=== PATIENT | female | born 2000 | race African-American/Black ===

== ENCOUNTER 2020-12-11 17:28 | Outpatient (CLI) | payer MEDICAID | END 2020-12-11 17:29 | disposition EMS.NT | LOC: EMS 17:28 | DX: R10.9 Unspecified abdominal pain (principal) ==

== ENCOUNTER 2020-12-11 18:15 | Emergency (ER) | payer MEDICAID ==
--- NOTE | 2020-12-11 18:35 | ED Physician Documentation ---
PD HPI ABD PAIN - Stated complaint Stated Complaint: LOWER ABD PX - Chief complaint Chief Complaint: Abd Pain - History obtained from History obtained from: Patient - History of Present Illness Timing - onset: How many hours ago (1) Timing - duration: Hours (1) Timing - details: Abrupt onset Quality: Aching, Sharp, Pain Location: LLQ Radiation: No: Lower back, Left flank Improved by: No: Eating Worsened by: No: Eating Associated symptoms: Nausea. No: Fever, Vomiting, Diarrhea, Constipation, Dysuria, Vaginal bleeding (finished typical period couple days ago. No current bleeding.), Vaginal dc Similar symptoms before: Has not had sx before Recently seen: Not recently seen Review of Systems Constitutional: denies: Fever, Chills Nose: denies: Rhinorrhea / runny nose, Congestion Throat: denies: Sore throat Respiratory: denies: Cough : denies: Dysuria, Frequency, Discharge, Irregular menses, Missed period Neurologic: denies: Focal weakness, Numbness, Near syncope PD PAST MEDICAL HISTORY - Past Medical History Cardiovascular: None Respiratory: None Neuro: None Endocrine/Autoimmune: None - Present Medications Home Medications: Ambulatory Orders Medication Instructions Recorded Confirmed No Known Home Medications 12/11/20 12/11/20 - Allergies Allergies/Adverse Reactions: Allergies Allergy/AdvReac Type Severity Reaction Status Date / Time No Known Drug Allergies Allergy Verified 12/11/20 18:32 PD ED PE NORMAL - Vitals Vital signs reviewed: Yes - General General: Alert and oriented X 3, Well developed/nourished - Neck Neck: Supple, no meningeal sign, No adenopathy - Cardiac Cardiac: RRR, No murmur - Respiratory Respiratory: Clear bilaterally - Abdomen Abdomen: Normal bowel sounds, Soft, Non distended, No organomegaly, Other (tender LLQ with some guarding and referred tender from mid abd. No percussion tenderness. ) - Derm Derm: Normal color, Warm and dry - Extremities Extremities: No calf tenderness / cord - Neuro Neuro: Alert and oriented X 3, No motor deficit, Normal speech Results - Vitals Vitals: Vital Signs - 24 hr 12/11/20 12/11/20 12/11/20 18:28 19:26 21:00 Temperature 36.9 C 36.6 C Heart Rate 65 68 53 L Respiratory 15 16 14 Rate Blood Pressure 112/69 112/81 H 112/83 H O2 Saturation 99 100 100 Oxygen O2 Source Room air - Labs Labs: Laboratory Tests 12/11/20 12/11/20 12/11/20 18:54 18:54 20:42 WBC 8.3 RBC 4.83 Hgb 13.1 Hct 40.4 MCV 83.6 MCH 27.1 MCHC 32.4 RDW 14.1 Plt Count 300 MPV 10.5 Neut # (Auto) 5.4 Lymph # (Auto) 2.3 [place] # (Auto) 0.6 Eos # (Auto) 0.0 Baso # (Auto) 0.0 Absolute Nucleated RBC 0.00 Nucleated RBC % 0.0 Sodium 139 Potassium 2.9 L Chloride 103 Carbon Dioxide 26 Anion Gap 10.0 BUN 9 Creatinine 0.7 Estimated GFR (MDRD) 129 Glucose 91 Calcium 9.7 Total Bilirubin 1.7 H AST 22 ALT 12 Alkaline Phosphatase 59 Total Protein 8.2 Albumin 5.0 Globulin 3.2 Albumin/Globulin Ratio 1.6 Lipase 23 Urine Color YELLOW Urine Clarity CLEAR Urine pH 6.[address] [place] 1.010 Urine Protein NEGATIVE Urine Glucose (UA) NEGATIVE Urine Ketones NEGATIVE Urine Occult Blood NEGATIVE Urine Nitrite NEGATIVE Urine Bilirubin NEGATIVE Urine Urobilinogen 0.2 (NORMAL) Ur Leukocyte Esterase NEGATIVE Ur Microscopic Review NOT INDICATED Urine Culture Comments NOT INDICATED Urine HCG, Qual 12/11/20 20:42 WBC RBC Hgb Hct MCV MCH MCHC RDW Plt Count MPV Neut # (Auto) Lymph # (Auto) [place] # (Auto) Eos # (Auto) Baso # (Auto) Absolute Nucleated RBC Nucleated RBC % Sodium Potassium Chloride Carbon Dioxide Anion Gap BUN Creatinine Estimated GFR (MDRD) Glucose Calcium Total Bilirubin AST ALT Alkaline Phosphatase Total Protein Albumin Globulin Albumin/Globulin Ratio Lipase Urine Color Urine Clarity Urine pH Ur Specific [place] Urine Protein Urine Glucose (UA) Urine Ketones Urine Occult Blood Urine Nitrite Urine Bilirubin Urine Urobilinogen Ur Leukocyte Esterase Ur Microscopic Review Urine Culture Comments Urine HCG, Qual NEGATIVE - Rads (name of study) pelvic U/S Radiology: Prelim report reviewed (no acute process. no free fluid, cysts, torsion. ), See rad report PD MEDICAL DECISION MAKING - ED course Complexity details: re-evaluated patient (her pain is quite gone with meds here and no tenderness on recheck after U/S. Was not tender/painful RLQ at any point. Shared decision to hold on further testing, such as CT, since pain all gone at this time. ), considered differential (torsion, ectopic, ruptured cyst, kidney stone, among other things. ), d/w patient Departure - Departure Disposition: 01 Home, Self Care Clinical Impression: Left lower quadrant abdominal pain Condition: Stable Record reviewed to determine appropriate education?: Yes Instructions: ED Abdominal Pain Unkn Cause Comments: Your temperature and white count are normal so not appearing to be significant infectious cause. Urine test does not show any signs of infection. Your chemistry panel showed a slightly low potassium level but that should not contribute to this pain. The ultrasound did not show any obvious abnormality with the ovaries uterus or ureters. Possibilities are there may been a small ovarian cyst rupture but not leave enough residual to be evident on ultrasound. Alternative would be passing a small kidney stone that also was not enough to be evident. There are other potential possibilities but you are not tender in the area at concerning for appendix or gallbladder. It is reasonable therefore to for see how you do over the next day or 2 and see if the pain stays fully away like it is currently. Tylenol or ibuprofen if needed for mild pains. Stay well-hydrated. Return if significant return of pain or any other symptoms such as fever, diarrhea, bloody stools, repetitive vomiting or other concerns. Discharge Date/Time: 12/11/20 21:28
[2020-12-11] MEDS ORDERED: SODIUM CHLORIDE 0.9% 1,000 ML IV STA (18:44)
[2020-12-11] MEDS ORDERED: MORPHINE 2 MG/ML CARPUJECT IVP STA (18:44)
[2020-12-11] MEDS ORDERED: KETOROLAC 15 MG/ML VIAL IVP STA (18:44)
[2020-12-11 19:04] LABS: BASOPHILS % (AUTO) 0.4 %; EOSINOPHILS % (AUTO) 0.1 %; HCT - HEMATOCRIT 40.4 % (37.0-47.0); HGB - HEMOGLOBIN 13.1 g/dL (12.0-16.0); LYMPHOCYTES # (AUTO) 2.3 10^3/uL (1.5-3.5); LYMPHOCYTES % (AUTO) 27.4 %; MEAN CORPUSCULAR HEMOGLOBIN 27.1 pg (27.0-31.0); MEAN CORPUSCULAR HGB CONC 32.4 g/dL (32.0-36.0); MEAN CORPUSCULAR VOLUME 83.6 fL (81.0-99.0); MEAN PLATELET VOLUME 10.5 fL (7.9-10.8); MONOCYTES # (AUTO) 0.6 10^3/uL (0.0-1.0); MONOCYTES % (AUTO) 6.7 %; NEUTROPHILS # (AUTO) 5.4 10^3/uL (1.5-6.6); NEUTROPHILS % (AUTO) 65.3 %; PLT - PLATELET COUNT 300 10^3/uL (130-450); RED BLOOD COUNT 4.83 10^6/uL (4.20-5.40); RED CELL DISTRIBUTION WIDTH 14.1 % (12.0-15.0); WHITE BLOOD COUNT 8.3 x10^3/uL (4.8-10.8)
[2020-12-11 19:17] LABS: ALBUMIN/GLOBULIN RATIO 1.6 (1.0-2.2); BILIRUBIN,TOTAL 1.7 mg/dL (0.2-1.0); CALCIUM 9.7 mg/dL (8.5-10.3); CREATININE 0.7 mg/dL (0.4-1.0); POTASSIUM 2.9 mmol/L (3.5-5.0); TOTAL PROTEIN 8.2 g/dL (6.7-8.2)
[2020-12-11 20:55] LABS: BILIRUBIN,URINE NEGATIVE (NEGATIVE); GLUCOSE, URINE (UA) NEGATIVE (NEGATIVE); KETONES,URINE (UA) NEGATIVE (NEGATIVE); LEUKOCYTE ESTERASE, URINE NEGATIVE (NEGATIVE); NITRITE,URINE NEGATIVE (NEGATIVE); OCCULT BLOOD,URINE NEGATIVE (NEGATIVE); PH,URINE 6.5 PH (5.0-7.5); PROTEIN,URINE NEGATIVE (NEGATIVE); UROBILINOGEN,URINE 0.2 (NORMAL) E.U./dL (NORMAL)
[2020-12-11 20:57] LABS: CLARITY,URINE CLEAR (CLEAR); HCG UR QUAL NEGATIVE
[2020-12-11 21:09] VITALS: BP 112/83
--- NOTE | 2020-12-11 21:11 | Ultrasound Report ---
PROCEDURE: Pelvic w/Doppler Limited INDICATIONS: PELVIC PAIN L TECHNIQUE: Real-time transabdominal scanning was performed of the pelvic organs, with image documentation. COMPARISON: None. FINDINGS: Uterus: Uterus is normal in size at 8.0 x 4.0 x 4.7 cm. Endometrium measures 7 mm in combined thick ness. Ovaries: Within normal limits bilaterally. Intact arterial and venous flow bilaterally. Other: No free pelvic fluid. IMPRESSION: Negative examination. No evidence of torsion at the time of the examination. Reviewed by: Migel Lua MD on 12/11/2020 9:10 PM PDT Approved by: Migel Lua MD on 12/11/2020 9:10 PM PDT Station ID: [id number]
== END 2020-12-11 21:28 | disposition home or self-care (01) ==
LOC: ED 18:15
DX: R10.32 Left lower quadrant pain (principal); R11.0 Nausea
CPT/HCPCS: 36415; 80053; 81001; 81003; 81025; 83690; 85025; 87086; 93976; 96374; 96375; 99284